=== PATIENT | male | born 1950 | race Caucasian/White ===

== ENCOUNTER → 2019-12-17 10:09 | Outpatient (CLI) | payer MEDICARE, SELFPAY ==
--- NOTE | ~2019-12-17 | CT_ITS ---
EXAMINATION: CT chest abdomen wo con INDICATION: Pulmonary nodules, abdominal aortic aneurysm TECHNIQUE: Computed tomographic images of the chest and abdomen were obtained without intravenous con trast. The dose-length product (DLP) was 813.02 mGy-cm. Automated exposure control and iterative elein nstruction technique were employed. COMPARISON: 05/18/2019, 05/25/2018 FINDINGS: CHEST: The previously described groundglass opacities of the left lower lobe have resolved. There is a stable 7 mm nodule of the left upper lobe on image 63. Also seen are stable nodules of the minor fi ssure and right middle lobe. There is mild dependent atelectasis. The lungs are free of acute opaciti es. Mild emphysema is noted. No pathologically enlarged thoracic lymph nodes are identified. The hear t size is normal. Again noted is an aberrant origin of the right subclavian artery. Calcified coronar y artery atherosclerosis is noted. ABDOMEN: The liver, spleen, and adrenal glands are normal. Punctate calcification in the tail of the pancreas may reflect prior pancreatitis. Stones are present in the nondistended gallbladder. The righ t kidney is unremarkable. There is a 2 mm nonobstructing stone of the left kidney. There are no patho logically enlarged abdominal lymph nodes. There are no dilated loops of bowel. There is a 3.4 x 3.1 c m fusiform infrarenal abdominal aortic aneurysm. Endoluminal stents are noted in bilateral common ruthie ac arteries and into the distal abdominal aorta. There are changes of posterior fusion of the lumbar spine. IMPRESSION: 1. Stable pulmonary nodules, likely old granulomatous disease. 2. 3.4 cm infrarenal abdominal aortic aneurysm. 3. Interval resolution of groundglass opacification in the left lower lobe, likely resolving pneumoni a. Reviewed, dictated and finalized at location B. IMPRESSION: 1. Stable pulmonary nodules, likely old granulomatous disease. 2. 3.4 cm infrarenal abdominal aortic aneurysm. 3. Interval resolution of groundglass opacification in the left lower lobe, lik mitesh resolving pneumonia.
== END ==
PROVIDERS: PCP Family Medicine; Visit Provider Nurse Practitioner Family
DX: I71.4 Abdominal aortic aneurysm, without rupture (principal); R91.8 Other nonspecific abnormal finding of lung field
CPT/HCPCS: 71250; 74150

== ENCOUNTER 2019-12-30 13:53 | Outpatient (CLI) | payer MEDICARE, SELFPAY ==
--- NOTE | ~2019-12-30 | CT_ITS ---
EXAMINATION: CT lumbar spine [facility] EXAM DATE: 12/30/2019 14:42 INDICATION: Low back pain. TECHNIQUE: Spiral CT of the lumbar spine was performed without contrast. Axial, coronal and sagittal images were reviewed. The dose-length product (DLP) for this examination was 756.45 mGy-cm. The e xposure was tailored according to patient size (auto mA exposure control), and iterative reconstructi on (ASIR) was used as additional dose reduction technique. Comparison is made to prior examination fr 11/27/2017. FINDINGS: There is posterior fusion L2-S1. No lucency surrounding the screws. Interbody device at L5- S1 and L4-5. Moderate to severe loss of the L3-4, T12-L1 and L1-2 disc heights, moderate at L2-3. The re is pain management device entering at T12-L1, left paraspinal approach. Laminectomy defects L3-5. There is 4 mm retrolisthesis L1 on L2. There is abdominal aortic aneurysm incompletely imaged. There are biiliac stents. Level by level evaluation: T12-L1: There is a mild to moderate diffuse disc bulge. Facet arthropathy: Mild. Neural foraminal stenosis: Mild to moderate right, mild left. Central canal stenosis: Mild. L1-L2: There is a moderate diffuse disc bulge. Facet arthropathy: Mild to moderate. Neural foraminal stenosis: Moderate bilateral. Central canal stenosis: Mild to moderate. L2-L3: There is a mild diffuse disc bulge. Facet arthropathy: Partially fused, but moderate. Neural foraminal stenosis: Mild bilateral. Central canal stenosis: Mild. L3-L4: There is a mild to moderate diffuse disc bulge. Facet arthropathy: Partially fused. Neural foraminal stenosis: Mild to moderate left, mild right. Central canal stenosis: Posterior decompression. L4-L5: This level is fused. Facet arthropathy: Fused. Neural foraminal stenosis: Mild right. Central canal stenosis: Posterior decompression. L5-S1: This level is fused. Facet arthropathy: Fused. Neural foraminal stenosis: Mild right. Central canal stenosis: No stenosis. Compared to prior study, there has been some interval progression of the solid bone bridging at L4-5 level.. Difficult to appreciate any significant interval change in the spondylosis. IMPRESSION: 1. Surgical changes L2-S1. 2. Moderate to severe disc disease T12-L1, L1-2, L3-4. Reviewed, dictated and finalized at location A.
== END 2019-12-30 13:57 | disposition home or self-care (01) ==
PROVIDERS: PCP Family Medicine; Visit Provider Nurse Practitioner Family
DX: M54.5 Low back pain (principal); Z98.1 Arthrodesis status; M51.86 Other intervertebral disc disorders, lumbar region
CPT/HCPCS: 72131

== ENCOUNTER 2020-01-10 00:32 | Day surgery (SDC) | payer MEDICARE, SELFPAY ==
[2020-01-05 14:05] VITALS: BMI 25.2
[2020-01-10 06:31] VITALS: BP 116/70; PULSE 93; RESP 18; TEMP 36.1; O2SAT 98
[2020-01-10 06:39] VITALS: BMI 24.7
[2020-01-10 06:40] VITALS: BP 116/70; PULSE 93; RESP 18; TEMP 36.1; O2SAT 98
[2020-01-10] MEDS: LACTATED RINGERS 1,000 ML 150 ML IV CONT (06:43)
--- NOTE | 2020-01-10 07:00 | WPDANESEPPF ---
Anes - Initial Pre Proc Eval Procedure: Operation Date: 01/10/20 08:00 Proposed Procedures p Colonoscopy - Ivan Winston MD Date/Time: 01/10/20 07:00 Surgeon: Ivan Winston MD Pre Op Diagnosis: diarrhea Patient Data Age: 69 Gender: M Height: 5 ft 10 in Weight: 78.3 kg Last Vital Signs Temp 36.1 C L 01/10/20 06:40 Pulse 93 01/10/20 06:40 Resp 18 01/10/20 06:40 BP 116/70 01/10/20 06:40 Pulse Ox 98 01/10/20 06:40 Allergies Allergy/AdvReac Type Severity Reaction Status Date / Time No Known Allergies Allergy Verified 01/10/20 06:28 Home Medications Medication Instructions Recorded Confirmed Type aspirin 81 mg tablet,delayed 81 mg PO DAILY 08/23/19 01/10/20 History release calcium carbonate-vitamin D3 600 1 cap PO DAILY 08/23/19 01/05/20 History mg calcium-200 unit capsule calcium polycarbophil 625 mg tablet 1,250 mg PO BID 08/23/19 01/05/20 History clopidogrel 75 mg tablet 75 mg PO DAILY 08/23/19 01/10/20 History multivitamin 1 tablet PO DAILY 08/23/19 01/10/20 History potassium gluconate 550 mg (90 mg) 550 mg PO EVERY OTHER DAY 08/23/19 01/10/20 History tablet atorvastatin 80 mg tablet 80 mg PO DAILY #90 tablet 09/23/19 01/05/20 Rx cholecalciferol (vitamin D3) 25 25 mcg PO DAILY 11/15/19 01/10/20 History mcg (1,000 unit) capsule duloxetine 60 mg capsule,delayed 60 mg PO DAILY #90 cap 11/15/19 01/10/20 Rx release pregabalin 25 mg capsule See Rx Instructions PO BID PRN #60 12/02/19 01/10/20 Rx cap zolpidem 10 mg tablet 10 mg PO DAILY #30 tablet 12/28/19 01/10/20 Rx Patient hx anesthesia problems: none Family hx anesthesia problems: none PMFSH Past Medical History Medical History Abdominal aortic aneurysm, without rupture 3.4 x 3.1 on 12/17/19 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, 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 Hyperlipidemia Insomnia Malfunction of spinal cord stimulator Myocardial infarction (~2003) Peripheral polyneuropathy Pulmonary emphysema Pulmonary nodule CT 12/17/19 - no changes Sleep apnea in adult Surgical History Surgical History Status post angioplasty with stent Family History Family History Father Patient's father is Family history of cardiovascular disease Acute myocardial infarction FH myocardial infarction male first degree age known, Onset Age: 70 Sibling Patient's brother is Mother Hypertension Grandparent Family history of Parkinson's disease Family history of malignant neoplasm of urinary bladder Social History Social History Years smoked: 45 Smoking status: Current every day smoker Tobacco type: cigarettes Second hand tobacco smoke exposure: Yes Alcohol intake: unknown Substance use: never Gender identity (if verbalized by the patient): Male Anes - Eval Final PreProcedure Day of Procedure 01/10/20 07:00 Patient weight: normal Heart: regular rate and rhythm Lungs: clear to auscultation Airway: Mallampati scale class II Neurological: alert and oriented Last oral intake: >/= 8 hours ASA classification: III Emergent: no Anesthetic plan: proceed Anesthesia type and monitoring: general GIVS and standard monitoring Informed Consent: The patient's anesthetic plan and its attendant risks and benefits were discussed with the patient/family/POA. Questions were solicited and answers provided to the satisfaction of the patient/family/POA.
--- NOTE | 2020-01-10 07:54 | WPDGICN ---
Assessment and Plan Assessment and plan (1) Diarrhea: Code(s): R19.7 - Diarrhea, unspecified Status: Acute Assessment and Plan: Recent change in bowel habits. Patient has had diarrhea suspicious for irritable bowel syndrome relative sudden onset is of concern. Patient has had poor response to typical medications. Colonoscopy will be arranged. Elevated WBC suggest inflammatory process. (2) Encounter for diagnostic colonoscopy due to change in bowel habits: Code(s): R19.4 - Change in bowel habit Status: Acute (3) GERD (gastroesophageal reflux disease): Code(s): K21.9 - Gastro-esophageal reflux disease without esophagitis Status: Acute (4) History of colon polyps: Code(s): Z86.010 - Personal history of colonic polyps Status: Acute Assessment and Plan: Colonoscopy in 2016 revealed adenomatous colon polyp. Follow-up colonoscopy will be arranged. (5) COPD (chronic obstructive pulmonary disease): Qualifiers: COPD type: unspecified COPD Qualified Code(s): J44.9 - Chronic obstructive pulmonary disease, unspecified Code(s): J44.9 - Chronic obstructive pulmonary disease, unspecified Status: Acute GI Consult Note Consult date/time: 01/10/20 07:54 HPI: Mono Bright is a 69 year old male seen in evaluation at the request Dr. Vasquez Forman. patient has a history of rather profuse diarrhea that began in July of 2019. He states that 1-2 hours after eating he will have diarrhea excess gas noted he denies any bleeding denies abdominal pain is weight has remained stable he has tried FiberCon and acidophilus probiotics without relief of symptoms he does note occasional formed stools a least 1 time week. Previously on no medications he was prescribed fibers E but not covered by his insurance recently has begun a trial of Xifaxan 550 mg p.o. b.i.d. with no change in symptoms. Stool cultures revealed elevated with wbc's but cultures them cells were negative. Patient denies any weight loss. Denies any bleeding. Last colonoscopy 2016 revealed colon adenoma. Past medical history is significant for acid reflux he has a history of previous Ashely fundoplication. 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 Hyperlipidemia Insomnia Malfunction of spinal cord stimulator Myocardial infarction (~2003) Peripheral polyneuropathy Pulmonary emphysema Pulmonary nodule CT 12/17/19 - no changes Sleep apnea in adult Surgical History Surgical History Status post angioplasty with stent Family History Family History Father Patient's father is Family history of cardiovascular disease Acute myocardial infarction FH myocardial infarction male first degree age known, Onset Age: 70 Sibling Patient's brother is Mother Hypertension Grandparent Family history of Parkinson's disease Family history of malignant neoplasm of urinary bladder Social History Social History Years smoked: 45 Smoking status: Current every day smoker Tobacco type: cigarettes Second hand tobacco smoke exposure: Yes Alcohol intake: unknown Substance use: never Gender identity (if verbalized by the patient): Male Meds Home Medications and Allergies Home Medications Medication Instructions Recorded Confirmed Type aspirin 81 mg tablet,delayed 81 mg PO DAILY 08/23/19 01/10/20 History release
[2020-01-10 08:18] VITALS: BP 100/64; PULSE 69; RESP 20; O2SAT 96
[2020-01-10 08:20] VITALS: BP 101/66; PULSE 72; RESP 19; O2SAT 99
--- NOTE | 2020-01-10 08:27 | SUR.PREOP ---
01/10/[address] Winston regarding patient re-starting his Plavix. Dr. Winston stated he could re-start his Plavix tomorrow. Instructed patient when to re-start his Plavix as well included it on his discharge instructions. Judd SOLIMAN
[2020-01-10 08:30] VITALS: BP 103/62; PULSE 67; RESP 19; O2SAT 98
== END 2020-01-10 08:45 | disposition home or self-care (01) ==
PROVIDERS: PCP Family Medicine; Visit Provider Internal Medicine Gastroenterology
PROC: 0DJD8ZZ Inspection of Lower Intestinal Tract, Via Natural or Artificial Opening Endoscopic (ICD-10-PCS; CPT 45378; principal; 2020-01-10 08:00)
DX: Z12.11 Encounter for screening for malignant neoplasm of colon (principal); K52.831 Collagenous colitis; K52.832 Lymphocytic colitis; K63.5 Polyp of colon; K64.8 Other hemorrhoids; K21.9 Gastro-esophageal reflux disease without esophagitis; J44.9 Chronic obstructive pulmonary disease, unspecified; I71.4 Abdominal aortic aneurysm, without rupture; I25.10 Atherosclerotic heart disease of native coronary artery without angina pectoris; E78.5 Hyperlipidemia, unspecified; I25.2 Old myocardial infarction; G62.9 Polyneuropathy, unspecified; R91.1 Solitary pulmonary nodule; G47.00 Insomnia, unspecified; G47.30 Sleep apnea, unspecified; Z95.5 Presence of coronary angioplasty implant and graft; F17.210 Nicotine dependence, cigarettes, uncomplicated; Z79.82 Long term (current) use of aspirin; Z79.02 Long term (current) use of antithrombotics/antiplatelets
CPT/HCPCS: 45385; 88305; J2704; J7120

== ENCOUNTER 2020-01-21 14:01 | Outpatient (CLI) | payer MEDICARE, SELFPAY ==
--- NOTE | ~2020-01-21 | CT_ITS ---
EXAMINATION: CT thoracic spine wo con DATE: 01/21/2020 15:12 INDICATION: Thoracic back pain. TECHNIQUE: Computed tomography (CT) of the thoracic spine was performed without intravenous contrast. Automated exposure control and iterative reconstruction technique were employed. The dose-length pro duct was 890.02 mGy-cm. COMPARISON: Chest CT 12/17/2019, 05/15/2018 FINDINGS: There is an aberrant right subclavian artery. There is a mildly enlarged right paratracheal lymph node without change, likely benign. There is a 7 mm nodule in right lung lower lobe without ch moy from 05/15/2018, likely benign. There is 3 mm retrolisthesis of T12 on L1 and 4 mm retrolisthesis of L1 on L2. There is a Schmorl's node of inferior endplate of T9. There is severely decreased disc h eight at C5-C6 and C6-C7, mildly decreased disc height from T3-T4 through T10-T11, moderately decreas ed disc height at T11-T12, and severely decreased disc height at T12-L1 and L1-L2. Partially visualiz ed are changes of posterior fusion procedure from L2 to the sacrum. There is an intrathecal catheter with tip at T8. There is multilevel mild facet joint osteoarthritis. There is severe facet joint oste oarthritis on the left at C7-T1. There is mild right neural foraminal stenosis at C5-C6, C6-C7, T9-T1 0, T10-T11, and T12-L1 and moderate right neural foraminal stenosis at L1-L2. There is mild left neur al foraminal stenosis at C5-C6, moderate left neural foraminal stenosis at C6-C7, mild left neural fo raminal stenosis at C7-T1 and T12-L1, and moderate left neural foraminal stenosis at L1-L2. There is mild central canal stenosis at C5-C6, C6-C7, T12-L1, and L1-L2. IMPRESSION: 1. Mild thoracic spondylosis and severe cervical and lumbar spondylosis. 2. Partially visualized posterior fusion procedure in lumbar spine. Reviewed, dictated and finalized at location E.
== END 2020-01-21 14:02 | disposition home or self-care (01) ==
PROVIDERS: PCP Family Medicine; Visit Provider Nurse Practitioner Family
DX: M47.896 Other spondylosis, lumbar region (principal); M47.894 Other spondylosis, thoracic region; M47.892 Other spondylosis, cervical region; Z98.1 Arthrodesis status
CPT/HCPCS: 72128